=== PATIENT | male | born 2000 | race Hispanic/Latino ===

== ENCOUNTER 2025-04-22 14:08 | Emergency (ER) | payer OTHER ==
[~2025-04-22] VITALS: Ht 170.2 cm; Wt 80.2 kg
[2025-04-22 14:12] VITALS: TEMP 98
[2025-04-22 15:23] LABS: KETONE, URINE AUTO RFX NEGATIVE (NEGATIVE); NITRITE, URINE AUTO RFX NEGATIVE (NEGATIVE); RBC, URINE AUTO RFX 0 /HPF (0-3); SQUAM EPITHELIAL CELL UR AURFX 0 /HPF (0-6); WBC, URINE AUTO RFX 5 /HPF (0-3)
[2025-04-22 15:33] LABS: LEUKOCYTE ESTERASE UR AUTO RFX TRACE (NEGATIVE)
[2025-04-22 20:06] VITALS: BP 124/68; O2SAT 98
[2025-04-22] MEDS ORDERED: DOXY-441 PO (20:07)
[2025-04-22] MEDS: cefTRIAXone 500 MG VIAL IM ONE (20:10)
[2025-04-22] MEDS: LIDOCAINE 1% SDV 5 ML VIAL DILUENT ONE (20:11)
[2025-04-22] MEDS: DOXYCYCLINE HYCLATE 100 MG TABLET PO ONE (20:11)
[2025-04-22 21:00] LABS: Trichomonas vaginalis (AMP) NOT DETECTED (NEGATIVE)
[2025-04-22 21:24] LABS: GC DNA AMPLIFICATION NEGATIVE (NEGATIVE)
== END 2025-04-22 20:23 | disposition home or self-care (01) ==
LOC: M ED 14:08
DX: N45.1 Epididymitis (principal); N50.89 Other specified disorders of the male genital organs
CPT/HCPCS: 76870; 81001; 87086; 87661; 87810; 87850; 93976; 96372; 99283; J0696